=== PATIENT | male | born 1960 | race Caucasian/White ===

== ENCOUNTER 2021-09-10 10:18 | Inpatient (IN) | payer OTHER ==
[~2021-09-10] VITALS: Ht 175.3 cm; Wt 69.9 kg
[2021-09-10] MEDS ORDERED: CETI-89 PO (10:27)
[2021-09-10] MEDS ORDERED: CRESTOR (10:27)
[2021-09-10] MEDS ORDERED: APIX5TAB PO (10:27)
[2021-09-10] MEDS ORDERED: NASOCORT (10:27)
[2021-09-10] MEDS ORDERED: DILT180C66 PO (10:27)
[2021-09-10] MEDS ORDERED: FINA1TAB18 PO (10:27)
[2021-09-10] MEDS ORDERED: SOTALOL HCL (10:27)
[2021-09-10] MEDS ORDERED: SODIUM CHLORIDE 0.45% 1,000 ML IV SCH (11:15)
[2021-09-10 11:22] LABS: BASOPHILS % 0.4 % (0.0-2.0); EOSINOPHILS % 0.9 % (0.0-5.0); HEMATOCRIT. 45.2 % (42.0-52.0); LYMPHOCYTES % 19.3 % (20.0-50.0); MEAN CORPUSCULAR VOLUME 87.5 fL (80.0-94.0); MEAN PLATELET VOLUME 8.7 fl (7.4-10.4); MONOCYTES % 6.8 % (2.0-8.0); NEUTROPHILS % 72.6 % (40.0-76.0); PLATELET 286 x1000/uL (130-400); RED BLOOD CELL COUNT 5.17 mill/uL (4.7-6.1)
[2021-09-10 11:34] LABS: CHLORIDE 105 mEq/L (98-107)
[2021-09-10] MEDS ORDERED: TETRACAINE/BENZOCAINE/BUTAMBEN 20 GM SPRAY MM ONE (13:46)
[2021-09-10] MEDS ORDERED: FENTANYL CITRATE/PF 50MCG/ML 2ML VIAL ONE (13:46)
[2021-09-10] MEDS ORDERED: MIDAZOLAM HCL 5 MG/5 ML VIAL ONE (13:46)
[2021-09-10] MEDS ORDERED: LIDOCAINE HCL 2% JELLY 5ML ONE (13:46)
[2021-09-10 14:00] VITALS: BP 100/53
[2021-09-10] MEDS ORDERED: ONDANSETRON HCL 4MG/2ML INJ IV PRN (14:45)
[2021-09-10] MEDS ORDERED: ATROPINE SULFATE 1MG/10ML SYR IV PRN (14:45)
[2021-09-10] MEDS ORDERED: ACETAMINOPHEN 325MG TABLET PO PRN (14:45)
[2021-09-10 14:54] VITALS: BP 100/54
[2021-09-10 16:00] VITALS: BP 100/57
[2021-09-10 16:38] VITALS: BP 100/53
== END 2021-09-10 17:15 | disposition home or self-care (01) | DRG 310 ==
LOC: ER 10:34 → 5EST 11:47 → ENRESERV 15:22
PROVIDERS: ADMIT Specialist; ATTEND Specialist
PROC: 5A2204Z Restoration of Cardiac Rhythm, Single (ICD-10-PCS; principal; 2021-09-10)
PROC: B245ZZ4 Ultrasonography of Left Heart, Transesophageal (ICD-10-PCS; 2021-09-10)
DX: I48.92 Unspecified atrial flutter (principal); I48.91 Unspecified atrial fibrillation; Z20.822 Contact with and (suspected) exposure to COVID-19; E78.5 Hyperlipidemia, unspecified; I10 Essential (primary) hypertension; Z91.013 Allergy to seafood; Z79.899 Other long term (current) drug therapy; Z79.2 Long term (current) use of antibiotics; Z79.01 Long term (current) use of anticoagulants
CPT/HCPCS: 36415; 71045; 80053; 83735; 84443; 84484; 85025; 87426; 92960; 93005; 93312; 99285; C9803; J2250; J3010